=== PATIENT | male | born 1965 | race Caucasian/White ===

== ENCOUNTER 2016-06-13 00:34 | Emergency (ER) | payer MEDICARE ==
[2016-06-13] MEDS ORDERED: NS 1,000 ML IV ONE (00:37)
[2016-06-13 00:43] VITALS: BMI 30.2
[2016-06-13] MEDS ORDERED: HYDROmorphone 1 MG INJECTION IV ONE (00:43)
[2016-06-13] MEDS ORDERED: ONDANSETRON HCL 4 MG/2 ML VIAL IV ONE (00:43)
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
[2016-06-13 00:48] VITALS: TEMP 98.1
[2016-06-13] MEDS ORDERED: Pharmacy Review for Metformin - IV Contrast Given SCH ×2 (01:00)
[2016-06-13 01:11] LABS: AUTOMATED BASOPHIL 1.3 % (0-2); AUTOMATED EOSINOPHIL 1.5 % (0-5); AUTOMATED LYMPH 28.4 % (17-44); AUTOMATED MONOCYTE 9.3 % (3-10); AUTOMATED NEUTROPHIL 59.5 % (45-76); MPV 7.8 fL (7.4-10.4)
[2016-06-13 01:48] LABS: BLOOD UREA NITROGEN 16 MG/DL (9-20); CALCULATED OSMOLALITY 265 MOs/Kg (270-290); CHLORIDE 100 mEq/L (98-107); GLUCOSE 96 MG/DL (70-99); SODIUM LEVEL 137 mEq/L (137-146); TOTAL PROTEIN 7.8 G/DL (6.3-8.2)
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
[2016-06-13 02:51] VITALS: BP 134/54; PULSE 68
== END 2016-06-13 02:50 | disposition home or self-care (01) ==
LOC: ED 00:34
DX: R10.10 Upper abdominal pain, unspecified (principal); T14.90 Injury, unspecified; V86.59XA Driver of other special all-terrain or other off-road motor vehicle injured in nontraffic accident, initial encounter; Y93.89 Activity, other specified; R07.9 Chest pain, unspecified
CPT/HCPCS: 36415; 71260; 74177; 80053; 83690; 85025; 85610; 96361; 96374; 96375; 99284; A9698; J1170; J2405